=== PATIENT | male | born 1995 | race Caucasian/White ===

== ENCOUNTER 2020-08-07 06:08 | Emergency (ER) | payer OTHER ==
--- NOTE | 2020-08-07 06:47 | EDM.PDOC ---
<OxanaNoé bond - Last Filed: 08/07/20 07:07> ED HPI GENERAL MEDICAL PROBLEM - General Chief Complaint: Behavioral/Psych Stated Complaint: HASN'T SLEPT IN 3 DAYS; "OFF" Time Seen by Provider: 08/07/20 06:30 - History of Present Illness INITIAL COMMENTS - FREE TEXT/NARRATIVE: HISTORY AND PHYSICAL: History of present illness: This is a 25-year-old gentleman with no significant past medical history who pr esents ER today secondary to concerns of possible new onset schizophrenia. Brother is here with the patient who reports that he is having intermittent episodes of altering personalities where at times he is very calm and at times he is extremely aggressive. Patient has statements of grandeur and reports that he is either Hitler or he is Mario. Patient makes faith references frequently regarding Mario Tab, the Holy Ghost, and God. Patient tries to relate that to man in childhood. Patient denies any homicidal or suicidal ideation. Brother is with him and he also reports no homicidal or suicidal thoughts but he is concerned regarding his bizarre behavior. Patient denies any recent fevers, shakes, chills, nausea, vomiting, diarrhea, dysuria, frequency, urgency, chest pain, shortness of breath. Patient and brother report no significant family history for schizophrenia other than distant cousins. Review of systems: As per history of present illness and below otherwise all systems reviewed and negative. Past medical history: As per history of present illness and as reviewed below otherwise noncontributory. Surgical history: As per history of present illness and as reviewed below otherwise noncontributory. Social history: No reported history of drug or alcohol abuse. Family history: As per history of present illness and as reviewed below otherwise noncontribu tory. Physical exam: Constitutional: Patient is oriented to person, place, and time. Appears well- developed and well-nourished. No distress. HEENT: Moist mucous membranes Head: Normocephalic and atraumatic Eyes: Right eye exhibits no discharge. Left eye exhibits no discharge. No scleral icterus Neck: Normal range of motion. No tracheal deviation present. Cardiovascular: Normal rate and regular rhythm. Pulmonary: Effort normal, no respiratory distress. Abdominal: No distention Musculoskeletal: Normal range of motion Neurologic: Alert and oriented to person, place and time. Skin: [place], warm and dry. Psychiatric: Normal mood and affect. Behavior is normal. Judgment and thought content normal. Nursing note and vital signs have been reviewed This patient was seen and evaluated during the 2019 SARS-CoV-2 novel coronavirus pandemic period. Community viral transmission is ongoing at time of this encounter and the emergency department is operating under pandemic response procedures. Diagnostics: CBC, CMP, urine drug screen, TSH, EKG EKG: As interpreted by ER physician: Oxana: Nonspecific ST-T wave abnormalities Normal axis No evidence of ST elevation DE Normal sinus rhythm heart rate of 67 Therapeutics: Haldol, Ativan, Benadryl Assessment and plan: 25-year-old gentleman who presents ER today with abnormal behavior that is been going on for approximately 1 month that has been escalating according to the brother. Patient reports occasional alcohol. He reports that he smokes marijuana and DMT. Last time he utilized EMT was approximately 1-2 month ago wh en he was visiting [place]. Patient does not have a history of mental health illness in the past. 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 Patient makes multiple references to [employer]. Patient reports that he thinks he is Hitler and at times he is Mario Tab. While in the ED, the patient was exhibiting escalating and somewhat aggressive behavior toward his brother. I have had a discussion with the patient and he is extremely amenable to receiving medication might help him relax and get some sleep. Patient reports that he has not slept in 3 days. Patient be given Haldol 5 mg IM, Benadryl 25 mg IM and Ativan 2 mg IM. I have had a long discussion with the patient and the brother regarding my concerns regarding bipolar disorder with possible psychotic features. This may be related to drug use. They are in agreement with medical clearance and transferring to a higher level care for further mental health evaluation. Patient will have his labs drawn and will obtain a urine drug screen and will reassess for transfer to higher level of care once results are returned. Definitive disposition and diagnosis as appropriate pending reevaluation and review of above. - Related Data Allergies Allergy/AdvReac Type Severity Reaction Status Date / Time No Known Allergies Allergy Verified 08/07/20 06:41 Home Meds: Home Meds . [No Known Home Meds] 08/07/20 [History] #1 Interpretation EKG Interpretation Comments: EKG: As interpreted by ER physician: Oxana: Nonspecific ST-T wave abnormalities Normal axis No evidence of ST elevation DE Normal sinus rhythm heart rate of 67 Departure - Departure Disposition: DC/Tfer to Acute Hospital 02 Clinical Impression: Acute psychosis - Discharge Information Referrals: PCP,None [Primary Care Provider] - Forms: ED Department Discharge Sepsis Event Note (ED) - Evaluation Sepsis Screening Result: No Definite Risk <Anders Soto - Last Filed: 08/07/20 09:45> ED ROS GENERAL - Review of Systems Review Of Systems: Unable To Obtain Reason Not Obtained: given sedation ED EXAM, GENERAL - Physical Exam Exam: See Below Course - Vital Signs Last Recorded V/S: Last Vital Signs Temp 97.6 F 08/07/20 08:59 Pulse 90 08/07/20 08:59 Resp 17 08/07/20 08:59 BP 132/87 08/07/20 08:59 Pulse Ox 98 08/07/20 08:59 - Orders/Labs/Meds Orders: Active Orders 24 hr Category Date Time Status EKG Documentation Completion [RC] STAT Care 08/07/20 06:32 Active Labs: Laboratory Tests 08/07/20 08/07/20 08/07/20 Range/Units 06:30 06:30 07:32 WBC 11.65 H (4.0-11.0) K/uL RBC 5.71 (4.50-5.90) M/uL Hgb 16.6 (13.0-17.0) g/dL Hct 49.3 (38.0-50.0) % MCV 86.3 (80.0-98.0) fL MCH 29.1 (27.0-32.0) pg MCHC 33.7 (31.0-37.0) g/dL RDW Std Deviation 41.2 (28.0-62.0) fl RDW Coeff of Carlos 13 (11.0-15.0) % Plt Count 335 (150-400) K/uL MPV 9.30 (7.40-12.00) fL Neut % (Auto) 69.7 (48.0-80.0) % Lymph % (Auto) 22.8 (16.0-40.0) % [place] % (Auto) 6.9 (0.0-15.0) % Eos % (Auto) 0.1 (0.0-7.0) % Baso % (Auto) 0.5 (0.0-1.5) % Neut # (Auto) 8.1 H (1.4-5.7) K/uL Lymph # (Auto) 2.7 H (0.6-2.4) K/uL [place] # (Auto) 0.8 (0.0-0.8) K/uL Eos # (Auto) 0.0 (0.0-0.7) K/uL Baso # (Auto) 0.1 (0.0-0.1) K/uL Nucleated RBC % 0.0 /100WBC Nucleated RBCs # 0 K/uL Sodium (136-148) mmol/L Potassium (3.5-5.1) mmol/L Chloride (98-107) mmol/L Carbon Dioxide (21.0-32.0) mmol/L BUN (7.0-18.0) mg/dL Creatinine (0.8-1.3) mg/dL Est Cr Clr Drug Dosing Estimated GFR (MDRD) ml/min Glucose (74-106) mg/dL Calcium (8.5-10.1) mg/dL Magnesium (1.8-2.4) mg/dL Total Bilirubin (0.2-1.0) mg/dL AST (15-37) IU/L ALT (14-63) IU/L Alkaline Phosphatase (46-116) U/L Total Protein (6.4-8.2) g/dL Albumin (3.4-5.0) g/dL Globulin (2.6-4.0) g/dL Albumin/Globulin Ratio (0.9-1.6) TSH 3rd Generation (0.36-3.74) uIU/mL Urine Color YELLOW Urine Appearance CLEAR Urine pH 6.5 (5.0-8.0) Ur Specific [place] 1.010 (1.001-1.035) Urine Protein NEGATIVE (NEGATIVE) mg/dL Urine Glucose (UA) NEGATIVE (NEGATIVE) mg/dL Urine Ketones NEGATIVE (NEGATIVE) mg/dL Urine Occult Blood NEGATIVE (NEGATIVE) Urine Nitrite NEGATIVE (NEGATIVE) Urine Bilirubin NEGATIVE (NEGATIVE) Urine Urobilinogen 0.2 (<2.0) EU/dL Ur Leukocyte Esterase NEGATIVE (NEGATIVE) Urine RBC NONE SEEN (0-2/HPF) Urine WBC NONE SEEN (0-5/HPF) Ur Epithelial Cells RARE (NONE-FEW) Urine Bacteria NOT SEEN (NEGATIVE) Salicylates (0-20) mg/dL Urine Opiates Screen NEGATIVE (NEGATIVE) Ur Oxycodone Screen NEGATIVE (NEGATIVE) Urine Methadone Screen NEGATIVE (NEGATIVE) Acetaminophen ug/mL Ur Barbiturates Screen NEGATIVE (NEGATIVE) Ur Phencyclidine Scrn NEGATIVE (NEGATIVE) Ur Amphetamine Screen NEGATIVE (NEGATIVE) U Methamphetamines Scrn NEGATIVE (NEGATIVE) U Benzodiazepines Scrn NEGATIVE (NEGATIVE) U Cocaine Metab Screen NEGATIVE (NEGATIVE) U Marijuana (THC) Screen POSITIVE (NEGATIVE) Ethyl Alcohol mg/dL SARS-CoV-2 RNA (LATANYA) (NEGATIVE) 08/07/20 08/07/20 Range/Units 07:32 07:45 WBC (4.0-11.0) K/uL RBC (4.50-5.90) M/uL Hgb (13.0-17.0) g/dL Hct (38.0-50.0) % MCV (80.0-98.0) fL MCH (27.0-32.0) pg MCHC (31.0-37.0) g/dL RDW Std Deviation (28.0-62.0) fl RDW Coeff of Carlos (11.0-15.0) % Plt Count (150-400) K/uL MPV (7.40-12.00) fL Neut % (Auto) (48.0-80.0) % Lymph % (Auto) (16.0-40.0) % [place] % (Auto) (0.0-15.0) % Eos % (Auto) (0.0-7.0) % Baso % (Auto) (0.0-1.5) % Neut # (Auto) (1.4-5.7) K/uL Lymph # (Auto) (0.6-2.4) K/uL [place] # (Auto) (0.0-0.8) K/uL Eos # (Auto) (0.0-0.7) K/uL Baso # (Auto) (0.0-0.1) K/uL Nucleated RBC % /100WBC Nucleated RBCs # K/uL Sodium 139 (136-148) mmol/L Potassium 4.7 (3.5-5.1) mmol/L Chloride 101 (98-107) mmol/L Carbon Dioxide 28.9 (21.0-32.0) mmol/L BUN 9 (7.0-18.0) mg/dL Creatinine 1.0 (0.8-1.3) mg/dL Est Cr Clr Drug Dosing TNP Estimated GFR (MDRD) > 60.0 ml/min Glucose 124 H (74-106) mg/dL Calcium 10.4 H (8.5-10.1) mg/dL Magnesium 2.2 (1.8-2.4) mg/dL Total Bilirubin 0.9 (0.2-1.0) mg/dL AST 18 (15-37) IU/L ALT 31 (14-63) IU/L Alkaline Phosphatase 71 (46-116) U/L Total Protein 8.9 H (6.4-8.2) g/dL Albumin 5.1 H (3.4-5.0) g/dL Globulin 3.8 (2.6-4.0) g/dL Albumin/Globulin Ratio 1.3 (0.9-1.6) TSH 3rd Generation 2.12 (0.36-3.74) uIU/mL Urine Color Urine Appearance Urine pH (5.0-8.0) Ur Specific [place] (1.001-1.035) Urine Protein (NEGATIVE) mg/dL Urine Glucose (UA) (NEGATIVE) mg/dL Urine Ketones (NEGATIVE) mg/dL Urine Occult Blood (NEGATIVE) Urine Nitrite (NEGATIVE) Urine Bilirubin (NEGATIVE) Urine Urobilinogen (<2.0) EU/dL Ur Leukocyte Esterase (NEGATIVE) Urine RBC (0-2/HPF) Urine WBC (0-5/HPF) Ur Epithelial Cells (NONE-FEW) Urine Bacteria (NEGATIVE) Salicylates <0.2 (0-20) mg/dL Urine Opiates Screen (NEGATIVE) Ur Oxycodone Screen (NEGATIVE) Urine Methadone Screen (NEGATIVE) Acetaminophen <2.0 ug/mL Ur Barbiturates Screen (NEGATIVE) Ur Phencyclidine Scrn (NEGATIVE) Ur Amphetamine Screen (NEGATIVE) U Methamphetamines Scrn (NEGATIVE) U Benzodiazepines Scrn (NEGATIVE) U Cocaine Metab Screen (NEGATIVE) U Marijuana (THC) Screen (NEGATIVE) Ethyl Alcohol <3 mg/dL SARS-CoV-2 RNA (LATANYA) POSITIVE H (NEGATIVE) Meds: Medications Discontinued Medications Generic Name Dose Route Start Last Admin Trade Name David PRN Reason Stop Dose Admin Diphenhydramine HCl 50 mg 08/07/20 07:02 08/07/20 07:24 Benadryl IM 08/07/20 07:03 50 mg ONETIME ONE Administration Haloperidol Lactate 5 mg 08/07/20 07:02 08/07/20 07:24 Haldol IM 08/07/20 07:03 5 mg ONETIME ONE Administration Lorazepam 2 mg 08/07/20 07:02 08/07/20 07:25 Ativan IM 08/07/20 07:03 2 mg ONETIME ONE Administration - Re-Assessments/Exams Free Text/Narrative Re-Assessment/Exam: 08/07/20 09:43 And has been accepted at [facility]. Patient was Covid positive. Patient remained stable. Patient labs reviewed U tox positive for marijuana. Departure - Departure Time of Disposition: 09:44 Condition: Good - Discharge Information *PRESCRIPTION DRUG MONITORING PROGRAM REVIEWED*: Not Applicable *COPY OF PRESCRIPTION DRUG MONITORING REPORT IN PATIENT PATRICK: Not Applicable Sepsis Event Note (ED) - Focused Exam Vital Signs: Vital Signs Temp Pulse Resp BP Pulse Ox 08/07/20 08:59 97.6 F 90 17 132/87 98 08/07/20 06:32 96.3 F L 69 18 156/99 H 98
[2020-08-07] MEDS ORDERED: Haloperidol Lactate 5 MG/ML SDV IM ONE (07:02)
[2020-08-07] MEDS ORDERED: LORazepam 2 MG/ML SDV IM ONE (07:02)
[2020-08-07] MEDS ORDERED: diphenhydrAMINE 50 MG/ML SDV IM ONE (07:02)
[2020-08-07 08:12] LABS: ACETAMINOPHEN <2.0 ug/mL
[2020-08-07 08:20] LABS: BLOOD UREA NITROGEN,BUN 9 mg/dL (7.0-18.0); CARBON DIOXIDE,CO2 28.9 mmol/L (21.0-32.0); CHLORIDE,CL 101 mmol/L (98-107); GLUCOSE RANDOM 124 mg/dL (74-106); POTASSIUM,K 4.7 mmol/L (3.5-5.1); SODIUM,NA 139 mmol/L (136-148)
== END 2020-08-07 10:59 ==
LOC: MW.ED 06:08
DX: U07.1 COVID-19 (principal); F23 Brief psychotic disorder
CPT/HCPCS: 36415; 80053; 80143; 80179; 80305; 80307; 81001; 83735; 84443; 85025; 87635; 93005; 96372; 99285; J1200; J1630; J2060; 93010; 99284; U0002